=== PATIENT | female | born 1980 | race Caucasian/White ===

== ENCOUNTER 2017-04-11 15:12 | Emergency (ER) | payer OTHER, SELFPAY ==
[2017-04-11 15:12] VITALS: BP 145/90; PULSE 80; RESP 18; O2SAT 100; BMI 22.4
--- NOTE | 2017-04-11 15:25 | XR_ITS ---
XR knee LT 3V HISTORY: Pain following injury ITS.REASON: work injury ORDERING PHYSICIAN: Jaida Ventura MD PATIENT AGE: 36 years COMPARISON: None FINDINGS: No fracture or dislocation. No lytic or blastic change. Normal mineralization. No significant arthritic changes evident. No other significant findings IMPRESSION: Negative Knee
--- NOTE | 2017-04-11 15:40 | [facility].EDEXTP ---
ED Disposition Clinical Impression: Knee effusion, left, Strain of knee and leg, left Disposition: Home, Self-Care Condition on Discharge: Fair Additional Instructions: 1- rest. 2- ice. 3- elevate. 4- knee immobilized 5- crutches 6- see Dr. Pope in AM, or go to Dr. Dolan on as we discussed. 7- need a pcp list. 8- stop smoking. Prescriptions: Ketorolac Tromethamine [Toradol 10mg tablet] 10 mg PO Q12H PRN 5 Days #10 tab PRN Reason: Moderate To Severe Pain Referrals: Sea Michele MD [Staff Physician] - - Critical Care Critical Care Time: No Attestation: On 04/11/17, the high probability of a clinically significant, sudden or life threatening deterioration of the following system(s) required my full and direct attention, intervention and personal management. The time I documented below is in addition to time spent performing reported procedures but includes the following listed in this critical care notation. Medical Decision Making Vital Signs: 04/11/17 15:12 Pulse Rate [Right Brachial] 80 Respiratory Rate 18 Blood Pressure [Right Arm] 145/90 Blood Pressure Mean [Right Arm] 108 Blood Pressure Source [Right Arm] Automatic Cuff Blood Pressure Position [Right Arm] Sitting 02 Sat by Pulse Oximetry 100 Oxygen Delivery Method Room Air Orders (Tests/Meds): ED MEDICATIONS Discontinued Medications Generic Name Dose Route Start Last Admin Trade Name Freq PRN Reason Stop Dose Admin Acetaminophen 1,000 mg 04/11/17 15:20 04/11/17 15:23 Tylenol 500mg Tablet PO 04/11/17 15:21 1,000 mg ONCE ONE Administration Ibuprofen 600 mg 04/11/17 15:20 04/11/17 15:23 Motrin 600mg Tablet PO 04/11/17 15:21 600 mg ONCE ONE Administration Ketorolac Tromethamine 30 mg 04/11/17 16:48 04/11/17 16:59 Toradol 30mg/Ml Vial IV 04/11/17 16:49 30 mg ONCE ONE Administration ORDERS Category Date Time Status Drug Screen,Urine Stat Lab 04/11/17 15:39 Ordered - Radiology Data #1 Image(s): Hip, Femur, Knee Image Reviewed: Yes I reviewed the patient's radiology image Preliminary Findings: Normal/NAD - Yaw Inquiry Pt receiving controlled substance: No Yaw was queried for this patient: No Medical Decision Making Narrative: I informed the patient of her negative x-rays advised her for rest ice and immobilization. I intended to give a referral to Dr. Myrick but her prefers Dr[facility] Dolan at [facility]. Extremity Problem HPI - General Chief complaint: Extremity Injury, Lower Stated complaint: injury Mode of Arrival: Wheelchair Limitations: No Limitations Description of Symptoms (Recalled from ER Triage Doc. by RN): At work, fell off steps of back of truck and twisted knee. Workman's comp - History of Present Illness HPI Narrative: 36 years old white female who was cleaning a mixer truck when she stepped the wrong and landed on her left hip with a result of the left knee injury. She is sitting with her left knee semi-flaccid in a comfortable position. MD Complaint: extremity pain, joint paint Onset (ago): hour(s) Consistency: constant (1 hour ago) Location: left Severity scale (1-10): 10 Quality: aching, sharp Radiation: none Relieving factors: rest Exacerbating factors: range of motion Associated symptoms: denies other symptoms - Related Data Home Medications Medication Instructions Recorded Confirmed Methadone HCl [Methadone 10mg 100 mg PO DAILY 04/11/17 04/11/17 Tablet] Previous Rx's Medication Instructions Recorded Ketorolac Tromethamine [Toradol 10 mg PO Q12H PRN 5 Days #10 tab 04/11/17 10mg tablet] Allergies Allergy/AdvReac Type Severity Reaction Status Date / Time No Known Allergies Allergy Verified 04/11/17 15:18 [facility] History I have reviewed the patient's past medical history: Yes Medical History: Denies:: Cancer, Diabetes Mellitus Type 1, Diabetes Mellitu
--- NOTE | 2017-04-11 15:43 | ED_ITS ---
ED Disposition Clinical Impression: Knee effusion, left, Strain of knee and leg, left Disposition: Home, Self-Care Condition on Discharge: Fair Additional Instructions: 1- rest. 2- ice. 3- elevate. 4- knee immobilized 5- crutches 6- see Dr. Pope in AM, or go to Dr. Dolan on as we discussed. 7- need a pcp list. 8- stop smoking. Prescriptions: Ketorolac Tromethamine [Toradol 10mg tablet] 10 mg PO Q12H PRN 5 Days #10 tab PRN Reason: Moderate To Severe Pain Referrals: Sea Michele MD [Staff Physician] - - Critical Care Critical Care Time: No Attestation: On 04/11/17, the high probability of a clinically significant, sudden or life threatening deterioration of the following system(s) required my full and direct attention, intervention and personal management. The time I documented below is in addition to time spent performing reported procedures but includes the following listed in this critical care notation. Medical Decision Making Vital Signs: 04/11/17 15:12 Pulse Rate [Right Brachial] 80 Respiratory Rate 18 Blood Pressure [Right Arm] 145/90 Blood Pressure Mean [Right Arm] 108 Blood Pressure Source [Right Arm] Automatic Cuff Blood Pressure Position [Right Arm] Sitting 02 Sat by Pulse Oximetry 100 Oxygen Delivery Method Room Air Orders (Tests/Meds): ED MEDICATIONS Discontinued Medications Generic Name Dose Route Start Last Admin Trade Name Freq PRN Reason Stop Dose Admin Acetaminophen 1,000 mg 04/11/17 15:20 04/11/17 15:23 Tylenol 500mg Tablet PO 04/11/17 15:21 1,000 mg ONCE ONE Administration Ibuprofen 600 mg 04/11/17 15:20 04/11/17 15:23 Motrin 600mg Tablet PO 04/11/17 15:21 600 mg ONCE ONE Administration Ketorolac Tromethamine 30 mg 04/11/17 16:48 04/11/17 16:59 Toradol 30mg/Ml Vial IV 04/11/17 16:49 30 mg ONCE ONE Administration ORDERS Category Date Time Status Drug Screen,Urine Stat Lab 04/11/17 15:39 Ordered - Radiology Data #1 Image(s): Hip, Femur, Knee Image Reviewed: Yes I reviewed the patient's radiology image Preliminary Findings: Normal/NAD - Yaw Inquiry Pt receiving controlled substance: No Yaw was queried for this patient: No Medical Decision Making Narrative: I informed the patient of her negative x-rays advised her for rest ice and immobilization. I intended to give a referral to Dr. Myrick but her prefers Dr. Dolan at [facility]. Extremity Problem HPI - General Chief complaint: Extremity Injury, Lower Stated complaint: injury Mode of Arrival: Wheelchair Limitations: No Limitations Description of Symptoms (Recalled from ER Triage Doc. by RN): At work, fell off steps of back of truck and twisted knee. Workman's comp - History of Present Illness HPI Narrative: 36 years old white female who was cleaning a mixer truck when she stepped the wrong and landed on her left hip with a result of the left knee injury. She is sitting with her left knee semi-flaccid in a comfortable position. Complaint: extremity pain, joint paint Onset (ago): hour(s) Consistency: constant (1 hour ago) Location: left Severity scale (1-10): 10 Quality: aching, sharp Radiation: none Relieving factors:
--- NOTE | 2017-04-11 16:15 | XR_ITS ---
XR femur LT 2V CLINICAL INDICATION: Posttraumatic pain ITS.REASON: fall ORDERING PHYSICIAN: Jaida Ventura MD PATIENT AGE: 36 years COMPARISON: None FINDINGS: No bony or joint abnormality. No fracture or dislocation. IMPRESSION: Negative left femur
--- NOTE | 2017-04-11 16:15 | XR_ITS ---
XR hip LT 2-3V w/pelvis HISTORY: Post traumatic pain ITS.REASON: fall ORDERING PHYSICIAN: Jaida Ventura MD PATIENT AGE: 36 years COMPARISON: None FINDINGS: No fracture or dislocation is evident. No significant degenerative change. No lytic or blastic change. Unremarkable soft tissues IMPRESSION: Negative left hip
[2017-04-11 17:41] VITALS: BP 140/85; PULSE 94; RESP 18; TEMP 36.6; O2SAT 100
== END 2017-04-11 17:44 | disposition home or self-care (01) ==
PROVIDERS: Emergency Provider Emergency Medicine
DX: M25.462 Effusion, left knee (principal); S86.912A Strain of unspecified muscle(s) and tendon(s) at lower leg level, left leg, initial encounter; W10.8XXA Fall (on) (from) other stairs and steps, initial encounter; Y93.89 Activity, other specified; Y92.89 Other specified places as the place of occurrence of the external cause; Z79.891 Long term (current) use of opiate analgesic
CPT/HCPCS: 29505; 73502; 73552; 73562; 96372; 99282